=== PATIENT | female | born 2000 | race Caucasian/White ===

== ENCOUNTER 2022-03-30 10:34 | Day surgery (SDC) | payer SELFPAY ==
[2022-03-27 13:28] VITALS: BMI 23.9
[2022-03-30 11:06] VITALS: RESP 16
[2022-03-30] MEDS ORDERED: PROPOFOL 60 ML ONE (13:15)
[2022-03-30] MEDS ORDERED: MIDAZOLAM HCL 2 MG/2 ML SINGLE DOSE VIAL ONE (13:19)
[2022-03-30] MEDS ORDERED: oxyCODONE HCL 5 MG TABLET PO PRN (13:43)
[2022-03-30] MEDS ORDERED: ONDANSETRON 4 MG/2 ML VIAL IVPUSH PRN (13:43)
[2022-03-30] MEDS ORDERED: ACETAMINOPHEN 325 MG TABLET (FP) PO PRN (13:43)
[2022-03-30] MEDS ORDERED: LACTATED RINGERS SOLUTION 1,000 ML IV SCH (13:45)
[2022-03-30] MEDS ORDERED: EPINEPHrine/PF 1 MG/1 ML (1:1,000) AMPULE ONE (13:45)
[2022-03-30] MEDS ORDERED: BACITRACIN 15 GM TUBE TOPICAL OINTMENT ONE (13:46)
[2022-03-30] MEDS ORDERED: BUPIVACAINE HCL/PF 0.25% (2.5MG/ML) 10 ML VIAL ONE (13:46)
[2022-03-30] MEDS ORDERED: LIDOCAINE HCL 1%, 10 MG/ML (20ML VIAL) ONE (13:46)
[2022-03-30] MEDS ORDERED: BUPIVACAINE HCL/EPINEPHRINE/PF 30 ML VIAL IJ ONE (13:46)
[2022-03-30] MEDS ORDERED: ceFAZolin SODIUM 1 GM VIAL ONE (14:16)
[2022-03-30] MEDS ORDERED: BUPIVACAINE HCL/PF 2.5 MG/ML - 30 ML VIAL IJ ONE (14:18)
[2022-03-30] MEDS ORDERED: PROPOFOL 20 ML ONE (15:04)
[2022-03-30 16:11] VITALS: TEMP 97.1
[2022-03-30 17:09] VITALS: BP 105/63; PULSE 78
== END 2022-03-30 16:40 | disposition home or self-care (01) ==
LOC: FASU 10:34 → MERGE 12:00 → FASU 16:40
PROVIDERS: ATTEND Surgery
PROC: 0UQG0ZZ Repair Vagina, Open Approach (ICD-10-PCS; 2022-03-30)
PROC: 0HBAXZZ Excision of Inguinal Skin, External Approach (ICD-10-PCS; principal; 2022-03-30 14:30)
DX: N90.69 Other specified hypertrophy of vulva (principal)
CPT/HCPCS: 84703